=== PATIENT | female | born 1950 | race Caucasian/White ===

== ENCOUNTER → 2018-02-12 | Outpatient (CLI) | payer MEDICARE ==
--- NOTE | 2018-02-12 14:04 | RADIOLOGY IMAGING REPORT ---
FACILITY: [facility] PATIENT NAME: Beatrice Coker : 1950 MR: [id number] V: [id number] EXAM DATE: ORDERING PHYSICIAN: PIO ADAN TECHNOLOGIST: Location: [facility] Patient: Beatrice Coker : 1950 Visit/Account:[id number] Date of Sevice: 02/12/2018 MRI left shoulder without contrast Indication: Left shoulder pain and decreased range of motion. Comparison: None available Technique: Multiplanar, multisequence MRI examination is performed of the left shoulder without contr ast. FINDINGS: There is a type 2 acromion. There are moderate changes of acromioclavicular joint osteoarthritis. The glenohumeral joint is normally aligned with mild underlying osteoarthritis. There is focal chondrosi s involving the anterior-superior glenoid surface with subchondral edema. Small osteophytes are prese nt. No significant joint effusion. Examination of the rotator cuff demonstrates mild-moderate severity supraspinatus and infraspinatus i nsertional tendinopathy. There is a low-grade partial-thickness undersurface tear of the central infr aspinatus tendon just medial to its insertion. No full-thickness tear is seen. The subscapularis inse rtion is maintained. The long head biceps tendon is seen within the bicipital groove. Insertion upon the glenoid is maintained. There is a small amount of fluid within the subacromial-subdeltoid bursa. Rotator cuff musculature is normal in bulk. No atrophy seen. IMPRESSION: 1. Mild-moderate severity left shoulder supraspinatus and infraspinatus insertional tendinopathy with partial-thickness undersurface infraspinatus tearing just medial to its insertion. No evidence of fu ll-thickness tear. 2. Mild changes of glenohumeral joint osteoarthritis. 3. Moderate changes of acromioclavicular joint osteoarthritis. 4. Trace subacromial-subdeltoid bursitis. Report Dictated By: Dariusz Crain at 02/12/2018 1:45 PM Report E-Signed By: Dariusz Crain at 02/12/2018 2:00 PM WSN:[id number]
== END ==
LOC: MRI 00:09
PROVIDERS: ATTEND Chiropractor
DX: M19.012 Primary osteoarthritis, left shoulder (principal); S46.812A Strain of other muscles, fascia and tendons at shoulder and upper arm level, left arm, initial encounter; M75.52 Bursitis of left shoulder